=== PATIENT | male | born 1930 | race Caucasian/White ===

== ENCOUNTER → 2017-03-28 | Outpatient (CLI) | payer MEDICARE, BC | END | disposition home or self-care (01) | LOC: CFH 07:55 | PROVIDERS: ATTEND Internal Medicine | DX: S22.080A Wedge compression fracture of T11-T12 vertebra, initial encounter for closed fracture (principal); S22.070A Wedge compression fracture of T9-T10 vertebra, initial encounter for closed fracture; M51.25 Other intervertebral disc displacement, thoracolumbar region; M51.24 Other intervertebral disc displacement, thoracic region; M47.894 Other spondylosis, thoracic region; X58.XXXA Exposure to other specified factors, initial encounter; Y93.89 Activity, other specified; Y92.89 Other specified places as the place of occurrence of the external cause; Y99.8 Other external cause status | CPT/HCPCS: 72146 ==

== ENCOUNTER 2017-05-24 11:03 | Inpatient (IN) | payer MEDICARE, BC ==
[~2017-05-24] VITALS: Ht 172.7 cm; Wt 78.7 kg
[2017-05-24] MEDS ORDERED: PLEASE ENTER ALLERGIES MC SCH (11:45)
[2017-05-24] MEDS ORDERED: HYDROmorphone 2 MG/ML, 1ML ONE ×2 (11:52→14:06)
[2017-05-24] MEDS ORDERED: HYDROmorphone 1 MG/ML, 1ML IM ONE (12:00)
[2017-05-24] MEDS ORDERED: SODIUM CHLORIDE FLUSH 10ML SYR IVF ONE (13:00)
[2017-05-24 13:16] LABS: INTERNATIONAL NORMALIZED RATIO 0.99 (0.93-1.1); PROTHROMBIN TIME 10.3 Seconds (9.6-11.5)
[2017-05-24 13:20] LABS: ALBUMIN 3.8 g/dL (3.4-5.0); ANION GAP 7 mmol/L (5-15); CALCIUM 9.2 mg/dL (8.5-10.1); CHLORIDE 106 mmol/L (98-107); CREATININE 1.16 mg/dL (0.7-1.3)
[2017-05-24 13:32] LABS: BASOPHILS # (AUTO) 0.01 x10^3/uL (0-0.1); BASOPHILS % (AUTO) 0 % (0-1); EOSINOPHILS # (AUTO) 0.07 x10^3/uL (0-0.4); EOSINOPHILS % (AUTO) 1 % (1-7); LYMPHOCYTES # (AUTO) 1.24 x10^3/uL (1-3.4); LYMPHOCYTES % (AUTO) 19 % (22-44); MD NO; MEAN CORPUSCULAR HEMOGLOBIN 32.3 pg (27.5-34.5); MEAN CORPUSCULAR HGB CONC 33.1 g/dL (33.2-36.2); MEAN CORPUSCULAR VOLUME 97.4 fL (81-97); MEAN PLATELET VOLUME 10.5 fL (7.4-10.4); MONOCYTES # (AUTO) 0.35 x10^3/uL (0.2-0.8); MONOCYTES % (AUTO) 6 % (2-9); NEUTROPHILS # (AUTO) 4.75 x10^3/uL (1.8-6.8); NEUTROPHILS % (AUTO) 74 % (42-75); PLATELET COUNT 115 x10^3/uL (130-400); RED BLOOD COUNT 4.41 x10^6/uL (4.38-5.82); RED CELL DISTRIBUTION WIDTH 15.4 % (9.4-14.8)
[2017-05-24] MEDS ORDERED: HYDROmorphone 1 MG/ML, 1ML IV ONE (14:00)
[2017-05-24] MEDS ORDERED: hydrALAzine 20 MG/ML, 1ML IVPush PRN (15:00)
[2017-05-24] MEDS ORDERED: LABETALOL 5MG/ML, 20ML IVPush PRN (15:00)
[2017-05-24] MEDS ORDERED: ONDANSETRON ODT 4 MG PO PRN (15:00)
[2017-05-24] MEDS ORDERED: morphine SULFATE 10 MG/ML, 1ML IVPush PRN (15:00)
[2017-05-24] MEDS ORDERED: ENOXAPARIN 40 MG/0.4 ML SQ SCH (15:00)
[2017-05-24] MEDS ORDERED: POLYETHYLENE GLYCOL 17 GM PACKET PO PRN (15:00)
[2017-05-24] MEDS ORDERED: ALLO300T PO (17:54)
[2017-05-24] MEDS ORDERED: CLON0.5T20 PO (17:54)
[2017-05-24] MEDS ORDERED: ATEN25TA PO (17:54)
[2017-05-24] MEDS ORDERED: ATOR10TA PO (17:54)
[2017-05-24] MEDS ORDERED: DEXAMETHASONE 4 MG/ML, 1ML ONE (19:00)
[2017-05-24] MEDS ORDERED: PHENYLEPHRINE 10 MG/ML ONE (19:00)
[2017-05-24] MEDS ORDERED: PROPOFOL 10 MG/ML, 20ML ONE (19:00)
[2017-05-24] MEDS ORDERED: LIDOCAINE-MPF 2% ,5ML ONE (19:00)
[2017-05-24] MEDS ORDERED: ONDANSETRON 2MG/ML, 2ML ONE (19:00)
[2017-05-24] MEDS ORDERED: CEFAZOLIN 1,000 MG ONE (19:00)
[2017-05-24] MEDS ORDERED: SUCCINYLCHOLINE 20 MG/ML, 10ML ONE (19:00)
[2017-05-24] MEDS ORDERED: FENTANYL PF 100 MCG/2ML IV PRN (19:30)
[2017-05-24] MEDS ORDERED: OXYcodone 5 MG/5 ML ORAL.SOL UDC PO PRN (19:30)
[2017-05-24] MEDS ORDERED: ACETAMINOPHEN 325 MG TABLET PO PRN (19:30)
[2017-05-24] MEDS ORDERED: HYDROmorphone 1 MG/ML, 1ML IV PRN (19:30)
[2017-05-24] MEDS ORDERED: HYDROcodone/APAP 7.5-325MG/15ML UDC PO PRN (19:30)
[2017-05-24] MEDS ORDERED: ONDANSETRON 2MG/ML, 2ML IVPush PRN (19:30)
[2017-05-24] MEDS ORDERED: ATENOLOL 25 MG TABLET PO SCH (21:00)
[2017-05-24] MEDS ORDERED: ATORVASTATIN 10 MG TABLET PO SCH (21:00)
[2017-05-24 21:18] VITALS: BP 127/49
[2017-05-24] MEDS: ATENOLOL 50 MG TABLET PO SCH (22:27)
[2017-05-24] MEDS ORDERED: ONDANSETRON 2MG/ML, 2ML IV PRN (22:30)
[2017-05-24] MEDS ORDERED: OXYcodone IR 5MG TABLET PO PRN (22:30)
[2017-05-24] MEDS: KETOROLAC 30 MG/1 ML IV SCH (23:18)
[2017-05-24 23:44] VITALS: BP 111/46
[2017-05-25] MEDS: CEFAZOLIN PMX 1GM/50ML 50 ML IV SCH ×3 (02:33→18:18)
[2017-05-25] MEDS: HYDROcodone/APAP 5/325 TABLET PO PRN ×2 (02:38→03:08)
[2017-05-25 04:02] VITALS: BP 99/55
[2017-05-25] MEDS: ENOXAPARIN 40 MG/0.4 ML SQ SCH (05:05)
[2017-05-25 07:12] VITALS: BP 104/61
[2017-05-25] MEDS: KETOROLAC 30 MG/1 ML IV SCH (07:30)
[2017-05-25] MEDS: SENNA/DOCUSATE TABLET PO SCH (08:01)
[2017-05-25] MEDS: ATORVASTATIN 10 MG TABLET PO SCH (08:56)
[2017-05-25] MEDS ORDERED: VALSARTAN 160 MG TABLET PO SCH (09:00)
[2017-05-25] MEDS ORDERED: ATENOLOL 25 MG TABLET PO SCH (09:00)
[2017-05-25] MEDS ORDERED: TEMPLATE NON-FORMULARY MED. (Olmesartan Medoxomil** (Benicar**) 20 MG) PO SCH (09:00)
[2017-05-25] MEDS: ASPIRIN 81 MG TABLET CHEW PO SCH (10:54)
[2017-05-25 12:40] VITALS: BP 95/47
[2017-05-25] MEDS ORDERED: OLME20TA19 PO (17:54)
[2017-05-25] MEDS: ALLOPURINOL 300 MG TABLET PO SCH (18:00)
[2017-05-25] MEDS: ATENOLOL 50 MG TABLET PO SCH (18:17)
[2017-05-25 19:44] VITALS: BP 95/55
[2017-05-26 01:13] VITALS: BP 103/60
[2017-05-26] MEDS: ENOXAPARIN 40 MG/0.4 ML SQ SCH (06:11)
[2017-05-26 08:12] VITALS: BP 99/62
[2017-05-26] MEDS: ATORVASTATIN 10 MG TABLET PO SCH (08:34)
[2017-05-26] MEDS: ASPIRIN 81 MG TABLET CHEW PO SCH (08:34)
[2017-05-26] MEDS: SENNA/DOCUSATE TABLET PO SCH (08:37)
[2017-05-26] MEDS: ALLOPURINOL 300 MG TABLET PO SCH (08:37)
[2017-05-26 12:21] VITALS: BP 109/60
[2017-05-26 20:29] VITALS: BP 105/46
[2017-05-26 20:32] VITALS: BP 118/47
[2017-05-26] MEDS: ATENOLOL 50 MG TABLET PO SCH (20:33)
[2017-05-26] MEDS: HYDROcodone/APAP 5/325 TABLET PO PRN (21:22)
[2017-05-27 04:05] VITALS: BP 98/68
[2017-05-27] MEDS: ENOXAPARIN 40 MG/0.4 ML SQ SCH (05:13)
[2017-05-27 08:00] VITALS: BP 94/43
[2017-05-27] MEDS: VALSARTAN 160 MG TABLET PO SCH (09:07)
[2017-05-27] MEDS: SENNA/DOCUSATE TABLET PO SCH (09:07)
[2017-05-27] MEDS: ALLOPURINOL 300 MG TABLET PO SCH (09:08)
[2017-05-27] MEDS: ASPIRIN 81 MG TABLET CHEW PO SCH (09:17)
[2017-05-27] MEDS: ATORVASTATIN 10 MG TABLET PO SCH (09:18)
[2017-05-27 13:33] VITALS: BP 102/46
[2017-05-27 20:30] VITALS: BP 116/47
[2017-05-27] MEDS: ATENOLOL 50 MG TABLET PO SCH (21:52)
[2017-05-28 02:16] VITALS: BP 148/52
[2017-05-28] MEDS: ENOXAPARIN 40 MG/0.4 ML SQ SCH (05:47)
[2017-05-28 07:41] VITALS: BP 118/50
[2017-05-28] MEDS: VALSARTAN 160 MG TABLET PO SCH (08:09)
[2017-05-28] MEDS: SENNA/DOCUSATE TABLET PO SCH (08:10)
[2017-05-28] MEDS: ALLOPURINOL 300 MG TABLET PO SCH (08:10)
[2017-05-28] MEDS: ATORVASTATIN 10 MG TABLET PO SCH (08:14)
[2017-05-28] MEDS: ASPIRIN 81 MG TABLET CHEW PO SCH (08:14)
[2017-05-28 13:04] VITALS: BP 124/52
[2017-05-28 20:45] VITALS: BP 133/71
[2017-05-28] MEDS: ATENOLOL 50 MG TABLET PO SCH (21:39)
[2017-05-29] MEDS: HYDROcodone/APAP 5/325 TABLET PO PRN ×2 (01:54→06:20)
[2017-05-29 03:47] VITALS: BP 137/66
[2017-05-29] MEDS: ENOXAPARIN 40 MG/0.4 ML SQ SCH (06:20)
[2017-05-29 07:21] VITALS: BP 100/57
[2017-05-29] MEDS: ATORVASTATIN 10 MG TABLET PO SCH (08:49)
[2017-05-29] MEDS: ASPIRIN 81 MG TABLET CHEW PO SCH (08:49)
[2017-05-29] MEDS: SENNA/DOCUSATE TABLET PO SCH (08:49)
[2017-05-29] MEDS: VALSARTAN 160 MG TABLET PO SCH (08:49)
[2017-05-29] MEDS: ALLOPURINOL 300 MG TABLET PO SCH (08:49)
[2017-05-29] MEDS ORDERED: ASPI-515 PO (12:44)
[2017-05-29 12:58] VITALS: BP 122/64
== END 2017-05-29 16:22 | disposition short-term general hospital (02) | DRG 469 ==
LOC: ED 13:45 → INTOOBSV 13:46 → EDIP 13:46 → ED 13:58 → 4NOR 14:37 → OBSVTOIN 05-27 13:15
PROVIDERS: ADMIT Hospitalist; ATTEND Hospitalist
PROC: 0SRR019 Replacement of Right Hip Joint, Femoral Surface with Metal Synthetic Substitute, Cemented, Open Approach (ICD-10-PCS; principal; 2017-05-27)
DX: S72.091A Other fracture of head and neck of right femur, initial encounter for closed fracture (principal); J96.20 Acute and chronic respiratory failure, unspecified whether with hypoxia or hypercapnia; E78.5 Hyperlipidemia, unspecified; G25.81 Restless legs syndrome; W01.0XXA Fall on same level from slipping, tripping and stumbling without subsequent striking against object, initial encounter; I10 Essential (primary) hypertension; M10.9 Gout, unspecified; Z79.82 Long term (current) use of aspirin; Z85.819 Personal history of malignant neoplasm of unspecified site of lip, oral cavity, and pharynx; Y93.89 Activity, other specified; Y92.098 Other place in other non-institutional residence as the place of occurrence of the external cause; Y99.8 Other external cause status
CPT/HCPCS: 36415; 71045; 80048; 82040; 85025; 85610; 93005; 96372; 96374; C1713; G0378; J0690; J1100; J1170; J1650; J1885; J2405; J2704; J3010; J3490; C1762; C1776; J0330; J2370

== ENCOUNTER 2017-07-14 20:15 | Emergency (ER) | payer MEDICARE, BC ==
[~2017-07-14] VITALS: Ht 175.3 cm; Wt 75.0 kg
[~2017-07-14 20:15] MED LIST: ALLO300T PO; ASPI-515 PO; ATEN25TA PO; ATOR10TA PO; CLON0.5T20 PO; OLME20TA19 PO
[2017-07-14] MEDS ORDERED: DIPH,PERTUSS(ACELL),TET VAC/PF 0.5 ML IM-VACC ONE ×2 (20:49→21:00)
[2017-07-14] MEDS ORDERED: LIDOCAINE-MPF 1%, 5ML INFIL ONE (21:00)
[2017-07-14] MEDS ORDERED: BACITRACIN ZINC OINT 500U/GM, 0.9 GM ONE (21:38)
[2017-07-14 22:21] VITALS: BP 156/39
== END 2017-07-14 22:24 | disposition home or self-care (01) ==
LOC: ED 21:18
DX: S06.0X0A Concussion without loss of consciousness, initial encounter (principal); S01.111A Laceration without foreign body of right eyelid and periocular area, initial encounter; G89.11 Acute pain due to trauma; W01.0XXA Fall on same level from slipping, tripping and stumbling without subsequent striking against object, initial encounter; Y93.89 Activity, other specified; Y92.89 Other specified places as the place of occurrence of the external cause; Y99.8 Other external cause status
CPT/HCPCS: 12053; 70450; 70486; 90471; 90715; 99284

== ENCOUNTER 2017-07-16 15:55 | Emergency (ER) | payer MEDICARE, BC ==
[~2017-07-16] VITALS: Ht 175.3 cm; Wt 73.9 kg
[2017-07-16 16:12] VITALS: BP 126/70
[2017-07-16] MEDS ORDERED: BACITRACIN ZINC OINT 500U/GM, 0.9 GM ONE ×2 (17:31)
== END 2017-07-16 17:48 | disposition home or self-care (01) ==
LOC: ED 16:45
DX: S01.111D Laceration without foreign body of right eyelid and periocular area, subsequent encounter (principal)
CPT/HCPCS: 99281

== ENCOUNTER 2017-08-24 12:51 | Emergency (ER) | payer MEDICARE, BC ==
[~2017-08-24] VITALS: Ht 175.3 cm; Wt 69.4 kg
[~2017-08-24 12:51] MED LIST changes: +OLME20TA17 PO; -OLME20TA19 PO
[2017-08-24 14:55] LABS: BASOPHILS # (AUTO) 0.05 x10^3/uL (0-0.1); BASOPHILS % (AUTO) 1 % (0-1); EOSINOPHILS # (AUTO) 0.22 x10^3/uL (0-0.4); EOSINOPHILS % (AUTO) 3 % (1-7); LYMPHOCYTES # (AUTO) 1.05 x10^3/uL (1-3.4); LYMPHOCYTES % (AUTO) 15 % (22-44); MD NO; MEAN CORPUSCULAR HEMOGLOBIN 30.3 pg (27.5-34.5); MEAN CORPUSCULAR HGB CONC 32.2 g/dL (33.2-36.2); MEAN CORPUSCULAR VOLUME 94.1 fL (81-97); MEAN PLATELET VOLUME 10.4 fL (7.4-10.4); MONOCYTES % (AUTO) 10 % (2-9); NEUTROPHILS # (AUTO) 4.98 x10^3/uL (1.8-6.8); NEUTROPHILS % (AUTO) 71 % (42-75); PLATELET COUNT 132 x10^3/uL (130-400); RED BLOOD COUNT 3.86 x10^6/uL (4.38-5.82); RED CELL DISTRIBUTION WIDTH 16.6 % (9.4-14.8)
[2017-08-24] MEDS ORDERED: AZITHROMYCIN 500 MG in SODIUM CHLORIDE 0.9% 250 ML IV ONE (15:00)
[2017-08-24 15:05] LABS: ALBUMIN 3.3 g/dL (3.4-5.0); ANION GAP 6 mmol/L (5-15); CALCIUM 8.8 mg/dL (8.5-10.1); CHLORIDE 108 mmol/L (98-107)
[2017-08-24 15:09] LABS: TROPONIN I 0.034 ng/mL (0.000-0.045)
[2017-08-24 18:04] VITALS: BP 147/88
== END 2017-08-24 18:07 | disposition home or self-care (01) ==
LOC: ED 17:10
DX: J15.9 Unspecified bacterial pneumonia (principal); J90 Pleural effusion, not elsewhere classified; E78.00 Pure hypercholesterolemia, unspecified; I10 Essential (primary) hypertension; I25.2 Old myocardial infarction
CPT/HCPCS: 36415; 71045; 80048; 82040; 83605; 83880; 84484; 85025; 87040; 93005; 96365; 99285; J0456; J7050

== ENCOUNTER 2017-08-27 09:49 | Emergency (ER) | payer MEDICARE, BC ==
[~2017-08-27] VITALS: Ht 175.3 cm; Wt 68.9 kg
[2017-08-27 09:58] VITALS: BP 145/61
== END 2017-08-27 11:05 | disposition home or self-care (01) ==
LOC: ED 11:00
DX: J15.9 Unspecified bacterial pneumonia (principal); E78.00 Pure hypercholesterolemia, unspecified; I10 Essential (primary) hypertension; M10.9 Gout, unspecified
CPT/HCPCS: 71046; 99284

== ENCOUNTER → 2017-09-12 | Outpatient (CLI) | payer MEDICARE, BC | END | disposition home or self-care (01) | LOC: CFH 13:55 | PROVIDERS: ATTEND Physician Assistant | DX: J18.9 Pneumonia, unspecified organism (principal); J90 Pleural effusion, not elsewhere classified | CPT/HCPCS: 71046 ==

== ENCOUNTER → 2017-10-02 | Outpatient (CLI) | payer MEDICARE, BC ==
[~2017-10-02] MED LIST changes: +OMNIPAQUE 350 MG/ML, 75ML BOTTLE ONE
== END ==
LOC: CFH 12:58
PROVIDERS: ATTEND Physician Assistant
DX: M48.54XA Collapsed vertebra, not elsewhere classified, thoracic region, initial encounter for fracture (principal); M51.34 Other intervertebral disc degeneration, thoracic region; L92.9 Granulomatous disorder of the skin and subcutaneous tissue, unspecified; J90 Pleural effusion, not elsewhere classified; I70.0 Atherosclerosis of aorta; K80.20 Calculus of gallbladder without cholecystitis without obstruction
CPT/HCPCS: 71260; Q9967

== ENCOUNTER 2018-01-05 03:26 | Emergency (ER) | payer MEDICARE, BC ==
[~2018-01-05] VITALS: Ht 172.7 cm; Wt 69.0 kg
[~2018-01-05 03:26] MED LIST changes: -OMNIPAQUE 350 MG/ML, 75ML BOTTLE ONE
[2018-01-05 03:44] VITALS: BP 102/42
== END 2018-01-05 06:06 | disposition home or self-care (01) ==
LOC: ED 06:00
DX: G89.11 Acute pain due to trauma (principal); M25.551 Pain in right hip; I10 Essential (primary) hypertension; I25.2 Old myocardial infarction; E78.00 Pure hypercholesterolemia, unspecified; M10.9 Gout, unspecified; W07.XXXA Fall from chair, initial encounter; Y93.89 Activity, other specified; Y92.098 Other place in other non-institutional residence as the place of occurrence of the external cause; Y99.8 Other external cause status
CPT/HCPCS: 99284

== ENCOUNTER 2018-01-28 22:16 | Inpatient (IN) | payer MEDICARE, BC ==
[~2018-01-28] VITALS: Ht 165.1 cm; Wt 67.1 kg
[2018-01-28 23:39] LABS: BASOPHILS # (AUTO) 0.06 x10^3/uL (0-0.1); BASOPHILS % (AUTO) 1 % (0-1); EOSINOPHILS # (AUTO) 0.27 x10^3/uL (0-0.4); EOSINOPHILS % (AUTO) 3 % (1-7); LYMPHOCYTES # (AUTO) 0.98 x10^3/uL (1-3.4); LYMPHOCYTES % (AUTO) 12 % (22-44); MD SCAN; MEAN CORPUSCULAR HEMOGLOBIN 32.7 pg (27.5-34.5); MEAN CORPUSCULAR HGB CONC 33.9 g/dL (33.2-36.2); MEAN CORPUSCULAR VOLUME 96.3 fL (81-97); MEAN PLATELET VOLUME 10.8 fL (7.4-10.4); MONOCYTES # (AUTO) 0.71 x10^3/uL (0.2-0.8); MONOCYTES % (AUTO) 9 % (2-9); NEUTROPHILS # (AUTO) 6.01 x10^3/uL (1.8-6.8); NEUTROPHILS % (AUTO) 75 % (42-75); PLATELET COUNT 93 x10^3/uL (130-400); RED BLOOD COUNT 3.23 x10^6/uL (4.38-5.82); RED CELL DISTRIBUTION WIDTH 15.4 % (9.4-14.8)
[2018-01-28] MEDS ORDERED: ONDANSETRON ODT 4 MG ONE (23:49)
[2018-01-28] MEDS ORDERED: MORPHINE SULFATE 4 MG/ML, 1ML ONE (23:50)
[2018-01-29] MEDS ORDERED: morphine SULFATE 10 MG/ML, 1ML IVPush ONE
[2018-01-29 00:10] LABS: ALBUMIN 3.2 g/dL (3.4-5.0); ANION GAP 3 mmol/L (5-15); CALCIUM 8.9 mg/dL (8.5-10.1); CHLORIDE 111 mmol/L (98-107); CREATININE 1.77 mg/dL (0.7-1.3)
[2018-01-29] MEDS ORDERED: ONDANSETRON ODT 4 MG PO ONE ×2 (00:30)
[2018-01-29] MEDS ORDERED: MORPHINE SULFATE 4 MG/ML, 1ML IVPush ONE (00:30)
[2018-01-29] MEDS ORDERED: SODIUM CHLORIDE 0.9% 1,000 ML IV ONE (01:04)
[2018-01-29] MEDS ORDERED: SODIUM CHLORIDE 0.9% 1,000 ML IV SCH (01:27)
[2018-01-29] MEDS ORDERED: BISACODYL 10 MG SUPP PR PRN (01:30)
[2018-01-29] MEDS: HEPARIN 5,000 UNITS/ML, 1ML SQ SCH ×2 (01:30→09:03)
[2018-01-29] MEDS ORDERED: ONDANSETRON ODT 4 MG PO PRN (01:30)
[2018-01-29] MEDS ORDERED: MORPHINE SULFATE 4 MG/ML, 1ML IVPush PRN (01:30)
[2018-01-29] MEDS ORDERED: DEXTROSE 50%, 50ML SYRINGE IVPush ONE (02:00)
[2018-01-29] MEDS ORDERED: ALBUTEROL SULFATE 2.5 MG/3 ML NPPB SCH (02:00)
[2018-01-29] MEDS ORDERED: INSULIN REGULAR 100 UNITS/ML, 3ML VIAL IVPush ONE (02:00)
[2018-01-29] MEDS: morphine SULFATE 10 MG/ML, 1ML IVPush PRN ×2 (02:15→10:53)
[2018-01-29 02:25] VITALS: BP 177/72
[2018-01-29 06:04] LABS: CHLORIDE 108 mmol/L (98-107)
[2018-01-29 06:09] LABS: ANION GAP 6 mmol/L (5-15); CALCIUM 8.3 mg/dL (8.5-10.1); CREATININE 1.66 mg/dL (0.7-1.3)
[2018-01-29 07:34] VITALS: BP 145/77
[2018-01-29] MEDS: ATORVASTATIN 10 MG TABLET PO SCH (09:00)
[2018-01-29] MEDS: ASPIRIN 81 MG TABLET EC PO SCH ×2 (09:00→22:19)
[2018-01-29 13:29] VITALS: BP 129/65
[2018-01-29] MEDS: SODIUM CHLORIDE 0.9% 1,000 ML IV SCH (15:07)
[2018-01-29] MEDS ORDERED: OMNIPAQUE 350 MG/ML, 100ML BOTTLE ONE (15:46)
[2018-01-29] MEDS ORDERED: HEPARIN 5,000 UNITS/ML, 1ML IV ONE (17:00)
[2018-01-29] MEDS ORDERED: HEPARIN 5,000 UNITS/ML, 1ML IV PRN (17:00)
[2018-01-29] MEDS ORDERED: HEPARIN 25,000 UNITS/500ML PMX 500 ML IV PRN (17:00)
[2018-01-29] MEDS: HYDROcodone/APAP 5/325 TABLET PO PRN ×2 (17:04→22:19)
[2018-01-29 20:20] VITALS: BP 124/84
[2018-01-30 00:50] VITALS: BP 108/50
[2018-01-30] MEDS: SODIUM CHLORIDE 0.9% 1,000 ML IV SCH (02:54)
[2018-01-30 03:59] LABS: ANION GAP 5 mmol/L (5-15); CALCIUM 7.5 mg/dL (8.5-10.1); CHLORIDE 115 mmol/L (98-107)
[2018-01-30 04:00] LABS: CREATININE 1.35 mg/dL (0.7-1.3)
[2018-01-30 04:24] LABS: MEAN CORPUSCULAR HEMOGLOBIN 32.3 pg (27.5-34.5); MEAN CORPUSCULAR HGB CONC 33.7 g/dL (33.2-36.2); MEAN CORPUSCULAR VOLUME 95.9 fL (81-97); MEAN PLATELET VOLUME 9.4 fL (7.4-10.4); PLATELET COUNT 82 x10^3/uL (130-400); RED BLOOD COUNT 2.68 x10^6/uL (4.38-5.82); RED CELL DISTRIBUTION WIDTH 15.4 % (9.4-14.8)
[2018-01-30 04:42] LABS: BASOPHILS # (AUTO) 0.04 x10^3/uL (0-0.1); BASOPHILS % (AUTO) 0 % (0-1); EOSINOPHILS # (AUTO) 0.28 x10^3/uL (0-0.4); EOSINOPHILS % (AUTO) 2 % (1-7); LYMPHOCYTES # (AUTO) 0.88 x10^3/uL (1-3.4); LYMPHOCYTES % (AUTO) 8 % (22-44); MD SCAN; MONOCYTES # (AUTO) 0.88 x10^3/uL (0.2-0.8); MONOCYTES % (AUTO) 7 % (2-9); NEUTROPHILS # (AUTO) 9.72 x10^3/uL (1.8-6.8); NEUTROPHILS % (AUTO) 82 % (42-75)
[2018-01-30 07:53] VITALS: BP 125/48
[2018-01-30] MEDS: ASPIRIN 81 MG TABLET EC PO SCH (09:00)
[2018-01-30] MEDS: ATORVASTATIN 10 MG TABLET PO SCH (09:00)
[2018-01-30] MEDS ORDERED: MEGE400O2 PO (11:55)
[2018-01-30] MEDS ORDERED: TAMS0.4C2 PO (11:55)
[2018-01-30 13:15] VITALS: BP 86/59
[2018-01-30] MEDS ORDERED: FUROSEMIDE 20 MG/2 ML IV ONE (15:00)
[2018-01-30 16:36] LABS: TROPONIN I 0.067 ng/mL (0.000-0.045)
[2018-01-30] MEDS ORDERED: NEOSPORIN OINT, 15GM ONE (16:43)
[2018-01-30] MEDS ORDERED: DEXTROSE 5%, 250ML ONE (18:43)
[2018-01-30] MEDS ORDERED: EPINEPHRINE SYRINGE 0.1 MG/ML, 10ML ONE (18:43)
[2018-01-30] MEDS ORDERED: ATROPINE SYRINGE 0.1 MG/ML, 10ML ONE (18:43)
[2018-01-30] MEDS ORDERED: DOPAMINE 400 MG/10 ML ONE (18:43)
[2018-01-30] MEDS ORDERED: CODE BLUE RESPONSE XX ONE (19:00)
[2018-01-31] MEDS ORDERED: SODIUM CHLORIDE 0.9% 1,000 ML IV SCH (01:27)
[2018-01-31] MEDS ORDERED: TAMSULOSIN 0.4 MG CAP.ER.24H PO SCH (17:00)
== END 2018-01-30 17:50 | disposition expired | DRG 682 ==
LOC: ED 22:59 → EDIP 01-29 01:27 → 4NOR 01-29 01:50 → CCU 01-30 17:02
PROVIDERS: ADMIT Family Medicine; ATTEND Family Medicine
PROC: 06HY33Z Insertion of Infusion Device into Lower Vein, Percutaneous Approach (ICD-10-PCS; principal; 2018-01-28)
PROC: 0BH17EZ Insertion of Endotracheal Airway into Trachea, Via Natural or Artificial Opening (ICD-10-PCS; 2018-01-28)
PROC: 5A12012 Performance of Cardiac Output, Single, Manual (ICD-10-PCS; 2018-01-28)
PROC: 30233N1 Transfusion of Nonautologous Red Blood Cells into Peripheral Vein, Percutaneous Approach (ICD-10-PCS; 2018-01-30)
DX: N17.0 Acute kidney failure with tubular necrosis (principal); S72.012A Unspecified intracapsular fracture of left femur, initial encounter for closed fracture; I26.99 Other pulmonary embolism without acute cor pulmonale; J96.00 Acute respiratory failure, unspecified whether with hypoxia or hypercapnia; K66.1 Hemoperitoneum; T79.4XXA Traumatic shock, initial encounter; S72.402A Unspecified fracture of lower end of left femur, initial encounter for closed fracture; W01.0XXA Fall on same level from slipping, tripping and stumbling without subsequent striking against object, initial encounter; Y93.89 Activity, other specified; Y92.89 Other specified places as the place of occurrence of the external cause; Y99.8 Other external cause status; M10.9 Gout, unspecified; Z96.641 Presence of right artificial hip joint; R58 Hemorrhage, not elsewhere classified; M19.90 Unspecified osteoarthritis, unspecified site; E78.00 Pure hypercholesterolemia, unspecified; E78.5 Hyperlipidemia, unspecified; E87.5 Hyperkalemia; E87.6 Hypokalemia; I46.9 Cardiac arrest, cause unspecified; G25.81 Restless legs syndrome; I10 Essential (primary) hypertension; I25.2 Old myocardial infarction; Z87.891 Personal history of nicotine dependence
CPT/HCPCS: 31500; 36415; 36430; 36600; 71045; 71275; 74176; 80048; 82040; 82550; 82803; 84484; 85014; 85018; 85025; 85520; 86900; 86923; 92950; 93970; 96374; G0378; J0461; J1265; J1644; J1815; J7060; Q0162; Q9967; J1940; J2270; J7030; P9016